=== PATIENT | female | born 1985 | race Caucasian/White ===

== ENCOUNTER 2017-03-07 17:24 | Observation (INO) | payer MEDICAID ==
[~2017-03-07] VITALS: Ht 157.5 cm; Wt 82.7 kg
[2017-03-07 18:00] VITALS: BP 117/57
[2017-03-07] MEDS ORDERED: LACTATED RINGERS 1,000 ML IVBOLUS ONE (18:30)
[2017-03-07] MEDS ORDERED: CEFAZOLIN PMX 1GM/50ML 50 ML IVPB ONE (18:30)
[2017-03-07] MEDS ORDERED: METOCLOPRAMIDE 5 MG/ML, 2ML IV ONE (18:30)
[2017-03-07] MEDS ORDERED: SODIUM CITRATE/CITRIC ACID 30 ML UDC PO ONE (18:30)
[2017-03-07 18:49] LABS: HEMATOCRIT 34.4 % (34.6-47.8); HEMOGLOBIN 11.8 g/dL (11.7-16.4); WHITE BLOOD COUNT 9.8 x10^3/uL (3.4-10)
[2017-03-07] MEDS: LACTATED RINGERS 1,000 ML IV SCH ×2 (20:50→23:53)
[2017-03-07] MEDS ORDERED: OXYMETAZOLINE NASAL SPRAY 0.05%, 15ML NAS SCH (21:00)
[2017-03-07] MEDS ORDERED: CEFAZOLIN 1,000 MG ONE (21:21)
[2017-03-07] MEDS ORDERED: EPHEDRINE 50 MG/ML, 1ML ONE (21:52)
[2017-03-07] MEDS ORDERED: OXYcodone/APAP 5/325MG TABLET PO PRN (22:30)
[2017-03-07] MEDS ORDERED: OXYcodone 5 MG/5 ML ORAL.SOL UDC PO PRN (22:30)
[2017-03-07] MEDS ORDERED: morphine SULFATE 10 MG/ML, 1ML IV PRN (22:30)
[2017-03-07] MEDS ORDERED: FENTANYL PF 100 MCG/2ML IV PRN (22:30)
[2017-03-07] MEDS ORDERED: EPHEDRINE 50 MG/ML, 1ML IVPush PRN (22:30)
[2017-03-07] MEDS ORDERED: ONDANSETRON 2MG/ML, 2ML IVPush PRN (22:30)
[2017-03-08] MEDS ORDERED: OXYcodone/APAP 5/325MG TABLET ONE (01:30)
== END 2017-03-08 09:45 | disposition home or self-care (01) ==
LOC: LDIP 17:24
PROVIDERS: ADMIT Obstetrics & Gynecology Maternal & Fetal Medicine; ATTEND Obstetrics & Gynecology Maternal & Fetal Medicine
DX: O26.872 Cervical shortening, second trimester (principal); Z3A.22 22 weeks gestation of pregnancy
CPT/HCPCS: 36415; 59320; 81003; 85025; 86850; 86900; G0378; J0690; J7120

== ENCOUNTER 2017-04-13 14:56 | Outpatient (CLI) | payer MEDICAID ==
[~2017-04-13] VITALS: Ht 157.5 cm; Wt 83.2 kg
[2017-04-13 15:20] VITALS: BP 120/63
[2017-04-13 16:19] LABS: MICROSCOPIC NOT IND
== END 2017-04-13 18:30 | disposition home or self-care (01) ==
LOC: LDOP 14:56
PROVIDERS: ATTEND Obstetrics & Gynecology
DX: O26.893 Other specified pregnancy related conditions, third trimester (principal); O34.33 Maternal care for cervical incompetence, third trimester; M54.5 Low back pain; Z3A.28 28 weeks gestation of pregnancy
CPT/HCPCS: 59025; 76805; 81003; 87086; 99211; G0463

== ENCOUNTER 2017-05-03 18:27 | Outpatient (CLI) | payer MEDICAID ==
[~2017-05-03] VITALS: Ht 157.5 cm; Wt 85.9 kg
[2017-05-03 19:10] VITALS: BP 124/74
[2017-05-03 19:49] LABS: MICROSCOPIC INDICATED
== END 2017-05-03 20:13 | disposition home or self-care (01) ==
LOC: LDOP 18:27
PROVIDERS: ATTEND Obstetrics & Gynecology
DX: O26.893 Other specified pregnancy related conditions, third trimester (principal); O36.8130 Decreased fetal movements, third trimester, not applicable or unspecified; M54.5 Low back pain; Z3A.30 30 weeks gestation of pregnancy
CPT/HCPCS: 59025; 81001; 87086; 89060; 99211; G0463; Q0114

== ENCOUNTER 2017-06-25 01:23 | Outpatient (CLI) | payer MEDICAID ==
[~2017-06-25] VITALS: Ht 157.5 cm; Wt 91.8 kg
== END 2017-06-25 02:50 | disposition home or self-care (01) ==
LOC: LDOP 01:23
PROVIDERS: ATTEND Obstetrics & Gynecology
DX: O26.893 Other specified pregnancy related conditions, third trimester (principal); Z3A.38 38 weeks gestation of pregnancy
CPT/HCPCS: 59025; 89060; 99211; G0463; Q0114

== ENCOUNTER 2017-07-08 11:09 | Inpatient (IN) | payer MEDICAID ==
[~2017-07-08] VITALS: Ht 157.5 cm; Wt 93.2 kg
[2017-07-08] MEDS ORDERED: D5%-LACTATED RINGERS 1,000 ML IV SCH (22:10)
[2017-07-08] MEDS ORDERED: OXYTOCIN 30U/ 0.9% NaCL 500ML 500 ML IV PRN (22:10)
[2017-07-08] MEDS ORDERED: OXYTOCIN 30U/ 0.9% NaCL 500ML 500 ML IV ONE (22:10)
[2017-07-08 22:17] VITALS: BP 135/75
[2017-07-08] MEDS ORDERED: TERBUTALINE 1 MG/ML, 1ML IVPush PRN (22:30)
[2017-07-08] MEDS ORDERED: CALCIUM CARBONATE 500 MG TAB.CHEW PO PRN (22:30)
[2017-07-08] MEDS: LACTATED RINGERS 1,000 ML IV SCH (22:30)
[2017-07-08] MEDS ORDERED: FENTANYL PF 100 MCG/2ML IVPush PRN (22:30)
[2017-07-08] MEDS ORDERED: ONDANSETRON 2MG/ML, 2ML IVPush PRN (22:30)
[2017-07-08] MEDS ORDERED: METOCLOPRAMIDE 5 MG/ML, 2ML IVPush PRN (22:30)
[2017-07-08] MEDS ORDERED: FENTANYL PF 100 MCG/2ML IV PRN (22:30)
[2017-07-08] MEDS ORDERED: MISOPROSTOL 25 MCG TABLET VG PRN (22:30)
[2017-07-08 22:53] LABS: BASOPHILS # (AUTO) 0.03 x10^3/uL (0-0.1); BASOPHILS % (AUTO) 0 % (0-1); EOSINOPHILS # (AUTO) 0.06 x10^3/uL (0-0.4); EOSINOPHILS % (AUTO) 1 % (1-7); LYMPHOCYTES # (AUTO) 2.11 x10^3/uL (1-3.4); LYMPHOCYTES % (AUTO) 26 % (22-44); MD NO; MEAN CORPUSCULAR HEMOGLOBIN 27.8 pg (27.0-34.8); MEAN CORPUSCULAR HGB CONC 32.8 g/dL (32.4-35.8); MEAN CORPUSCULAR VOLUME 84.6 fL (80-100); MONOCYTES # (AUTO) 0.63 x10^3/uL (0.2-0.8); MONOCYTES % (AUTO) 8 % (2-9); NEUTROPHILS # (AUTO) 5.39 x10^3/uL (1.8-6.8); NEUTROPHILS % (AUTO) 66 % (42-75); PLATELET COUNT 181 x10^3/uL (130-400); RED CELL DISTRIBUTION WIDTH 14.9 % (9.6-15.2)
[2017-07-08] MEDS ORDERED: MISOPROSTOL 200 MCG TABLET ONE (22:55)
[2017-07-08] MEDS ORDERED: MISOPROSTOL 25 MCG TABLET ONE (22:55)
[2017-07-08] MEDS ORDERED: LIDOCAINE-MPF 1%, 5ML ONE (22:55)
[2017-07-09] MEDS: LACTATED RINGERS 1,000 ML IV SCH (03:06)
[2017-07-09] MEDS ORDERED: FENTANYL/BUPIV./NS/PF 250 ML EPIDCONT SCH (07:57)
[2017-07-09] MEDS ORDERED: LACTATED RINGERS 1,000 ML IV SCH (07:57)
[2017-07-09] MEDS ORDERED: EPHEDRINE 50 MG/ML, 1ML IVPush PRN (08:00)
[2017-07-09] MEDS ORDERED: NALOXONE 0.4 MG/ML, 1ML IVPush PRN (08:00)
[2017-07-09] MEDS ORDERED: LACTATED RINGERS 1,000 ML IVBOLUS PRN (08:00)
[2017-07-09] MEDS ORDERED: BUPIVACAINE/PF 0.25% ONE (08:01)
[2017-07-09] MEDS ORDERED: FENTANYL/BUPIV./NS/PF 250 ML EPIDCONT ONE (08:01)
[2017-07-09] MEDS ORDERED: BUPIVACAINE 0.25% ONE (08:02)
[2017-07-09] MEDS ORDERED: FENTANYL PF 100 MCG/2ML ONE (08:02)
[2017-07-09] MEDS: OXYTOCIN 30U/ 0.9% NaCL 500ML 500 ML IV SCH ×2 (13:57→23:57)
[2017-07-09] MEDS ORDERED: OXYcodone/APAP 5/325MG TABLET PO PRN ×2 (14:00)
[2017-07-09] MEDS ORDERED: DIPH,PERTUSS(ACELL),TET VAC/PF NC IM-VACC PRN (14:00)
[2017-07-09] MEDS ORDERED: CALCIUM CARBONATE 500 MG TAB.CHEW PO PRN (14:00)
[2017-07-09] MEDS ORDERED: ONDANSETRON 2MG/ML, 2ML IV PRN (14:00)
[2017-07-09] MEDS ORDERED: MAGNESIUM HYDROXIDE 8%, 30ML UDC PO PRN (14:00)
[2017-07-09] MEDS ORDERED: RHOGAM FROM BLOOD BANK 1 NOTE EA IM/IV ONE (14:00)
[2017-07-09] MEDS ORDERED: MEASLES,MUMPS&RUBELLA VACC/PF 0.5 ML SQ-VACC PRN (14:00)
[2017-07-09] MEDS ORDERED: ACETAMINOPHEN 325 MG TABLET PO PRN (14:00)
[2017-07-09] MEDS ORDERED: MISOPROSTOL 200 MCG TABLET PR PRN (14:00)
[2017-07-09 16:00] VITALS: BP 127/66
[2017-07-09] MEDS: IBUPROFEN 600 MG TABLET PO PRN (18:18)
[2017-07-09 20:42] VITALS: BP 119/76
[2017-07-09 21:29] LABS: BASOPHILS # (AUTO) 0.03 x10^3/uL (0-0.1); BASOPHILS % (AUTO) 0 % (0-1); EOSINOPHILS # (AUTO) 0.03 x10^3/uL (0-0.4); EOSINOPHILS % (AUTO) 0 % (1-7); LYMPHOCYTES # (AUTO) 1.02 x10^3/uL (1-3.4); LYMPHOCYTES % (AUTO) 9 % (22-44); MD NO; MEAN CORPUSCULAR HEMOGLOBIN 28.1 pg (27.0-34.8); MEAN CORPUSCULAR HGB CONC 32.8 g/dL (32.4-35.8); MEAN CORPUSCULAR VOLUME 85.4 fL (80-100); MEAN PLATELET VOLUME 11.1 fL (7.4-10.4); MONOCYTES # (AUTO) 0.53 x10^3/uL (0.2-0.8); MONOCYTES % (AUTO) 5 % (2-9); NEUTROPHILS # (AUTO) 10.08 x10^3/uL (1.8-6.8); NEUTROPHILS % (AUTO) 86 % (42-75); PLATELET COUNT 156 x10^3/uL (130-400); RED BLOOD COUNT 3.35 x10^6/uL (3.82-5.3); RED CELL DISTRIBUTION WIDTH 14.4 % (9.6-15.2)
[2017-07-10] VITALS: BP 115/62
[2017-07-10 03:55] VITALS: BP 115/74
[2017-07-10] MEDS: IBUPROFEN 600 MG TABLET PO PRN (06:25)
[2017-07-10] MEDS: DOCUSATE 100 MG CAPSULE PO PRN (06:25)
[2017-07-10 08:10] VITALS: BP 121/77
[2017-07-10] MEDS: PRENATAL VIT/IRON/FA 1 EACH TABLET PO SCH (09:00)
[2017-07-10] MEDS: OXYTOCIN 30U/ 0.9% NaCL 500ML 500 ML IV SCH (09:57)
[2017-07-10 12:00] VITALS: BP 130/88
[2017-07-10 20:45] VITALS: BP 131/81
[2017-07-11 07:40] VITALS: BP 132/86
[2017-07-11] MEDS: PRENATAL VIT/IRON/FA 1 EACH TABLET PO SCH (08:19)
[2017-07-11] MEDS: DOCUSATE 100 MG CAPSULE PO PRN (08:19)
[2017-07-11] MEDS ORDERED: IBUP-1222 PO (09:21)
[2017-07-11] MEDS ORDERED: PREN1TAB60 PO (09:21)
== END 2017-07-11 11:58 | disposition home or self-care (01) | DRG 775 ==
LOC: LDIP 21:54 → 2NW 07-09 15:50
PROVIDERS: ADMIT Obstetrics & Gynecology; ATTEND Obstetrics & Gynecology
PROC: 10E0XZZ Delivery of Products of Conception, External Approach (ICD-10-PCS; principal; 2017-07-09)
PROC: 3E0R3BZ Introduction of Anesthetic Agent into Spinal Canal, Percutaneous Approach (ICD-10-PCS; 2017-07-09)
PROC: 00HU33Z Insertion of Infusion Device into Spinal Canal, Percutaneous Approach (ICD-10-PCS; 2017-07-09)
DX: O80 Encounter for full-term uncomplicated delivery (principal); Z37.0 Single live birth; Z3A.40 40 weeks gestation of pregnancy
CPT/HCPCS: 36415; 82803; 85025; 86850; 86900; J3010; J3490; J2590; J7120